=== PATIENT | male | born 1950 | race Caucasian/White ===

== ENCOUNTER 2017-07-20 11:20 | Emergency (ER) | payer MEDICARE, OTHER ==
[~2017-07-20] VITALS: Ht 182.9 cm; Wt 100.0 kg
[2017-07-20 11:26] VITALS: BP 134/82; PULSE 88; RESP 16; O2SAT 97
--- NOTE | 2017-07-20 13:16 | ED.REPORT ---
HPI-Extremity Problem Lower Date of Service Jul 20, 2017 ED Provider: Doc,Ed MD History of Present Illness: sent here by Dr. Benoit. Medications are metformin, eye drops for glaucoma, and antibiotic, took 3 pills, is bid dosing. right lower leg swelling. Started started with a small red spot, getting worse.. Seen at urgent care yesterday and started on antibiotics yesterday. Went to [facility] [facility] and sent here. Nursing Notes Stated Complaint: RIGHT CALF PAIN Chief Complaint: Skin Rash/Abscess Nursing Notes Reviewed: Yes Allergies: Coded Allergies: No Known Allergies (Unverified , 07/20/17) General Time Seen by MD: 13:15 Chief Complaint Leg injury right Hx Obtained From: Patient Onset Occurred: 5 days ago Symptom Duration: Since onset Past Medical History Past Medical History Reports: Diabetes mellitus, Denies: Asthma, Hypertension Past Surgical History hernia, ganglion cyst Smoking History Never Smoker Social History Alcohol Use: "Social" Drug Use: Denies drug use Occupation , lives by self 07/20/2017 Ambulatory Status Independent Review of Systems Basic Review of Systems Eyes: Vision NL, No discharge : No dysuria, No frequency Psychiatric: Normal thought content Physical Exam Initial Vital Signs Vital Signs (First) Date Time Temp Pulse Resp B/P Pulse Ox O2 Delivery O2 Flow Rate FiO2 07/20/17 11:26 36.6 88 16 134/82 97 Room Air Initial VS: Reviewed, Vital signs normal General/Constitutional: Well-developed, Well-nourished Head / Eyes: Atraumatic, Normocephalic, PERRL ENT: Mucous membranes moist, Conjunctiva normal, No scleral icterus Neck: Supple, Non-tender, Full range of motion Respiratory: Breath sounds normal, Clear to auscultation, No respiratory distress Cardiovascular: Regular rate & rhythm, Heart sounds normal, Intact distal pulses Abdomen / GI: Soft, Non-tender, No guarding, No rebound, No distention Back: No CVA tenderness Lymphatic: No lymphadenopathy Upper Extremities: Vascular intact, Neuro intact, No swelling, No tenderness Skin: Warm, Dry, No cyanosis Neurologic: Alert, Oriented, Nonfocal Psychiatric: Mood/affect normal, Behavior normal, Normal thought content right lower leg with draining abscess on lateral aspect. Abscess with multiple openings. Erthyma surrounding abscess. General/Constitutional: Awake, Alert, No acute distress Respiratory / Chest: Atraumatic, Breath sounds NL, Breath sounds = bilat, No respiratory distress Cardiovascular: Heart rate NL, Regular rhythm, Heart sounds NL, No gallop Interpretation & Diagnostics Lab Results Interpretation Result Diagram: 07/20/17 1350 07/20/17 1350 Test 07/20/17 13:50 White Blood Count 7.6th/mm3 (3.8-10.1) Red Blood Count 4.35mil/mm3 (4.40-5.80) Hemoglobin 14.4g/dL (13.8-17.2) Hematocrit 41.1% (41.0-50.0) Mean Corpuscular Volume 94.5fL (81-100) Mean Corpuscular Hemoglobin 33.1pg (27.0-35.0) Mean Corpuscular Hemoglobin Concent 35.0% (32.0-37.0) Red Cell Distribution Width 12.2% (12.3-15.4) Platelet Count 243bil/L (150-400) Neutrophils (%) (Auto) 69.9% (40-74) Lymphocytes (%) (Auto) 17.4% (14-46) Monocytes (%) (Auto) 9.8% (4-12) Eosinophils (%) (Auto) 2.5% (0-5) Basophils (%) (Auto) 0.3% (0-3) Sodium Level 135mEq/L (134-144) Potassium Level 4.4mEq/L (3.5-5.2) Chloride Level 96mEq/L (97-108) Carbon Dioxide Level 25mmol/L (18-29) Blood Urea Nitrogen 15mg/dL (8-27) Creatinine 0.84mg/dL (0.76-1.27) Estimat Glomerular Filtration Rate 97mL/min (>59) Glucose Level 124mg/dL (60-99) Lactic Acid Level 1.1mmol/L (0.4-2.0) Calcium Level 9.6mg/dL (8.5-10.1) Total Bilirubin 0.5mg/dL (0.0-1.2) Aspartate Amino Transf (AST/SGOT) 15U/L (0-50) Alanine Aminotransferase (ALT/SGPT) 14U/L (0-44) Alkaline Phosphatase 66U/L (25-160) Total Protein 8.0g/dL (6.4-8.4) Albumin 4.3g/dL (3.4-5.0) X-Ray Interpretation Xray Interpretation: ROCEDURE: X-RAY RIGHT TIBIA/FIBULA, TWO VIEWS ([id number]) INDICATIONS: abscess TECHNIQUE: 2 views of the tibia and fibula were acquired. COMPARISON: None. FINDINGS: Bones: Source of persistent pain not identified. No underlying foreign body or osseous trauma found. Soft tissues: No suspicious soft tissue calcifications or masses. IMPRESSION: No gas in the soft tissue seen. No abscess identified. Ultrasound assessment could be obtained for more accurate visualization of abscess if clinically desired. Dictated by: Yaakov Angeles M.D. on 07/20/2017 at 14:19 Approved by: Yaakov Angeles M.D. on 07/20/2017 at 14:20 Procedures Incision & Drainage Abscess Time: 16:00 Procedure Performed by: [facility] Consent / Setup / Site Prep: Informed consent provided Skin Preparation Agent: Betadine Local Anesthesia: Lidocaine 1%, 5cc, 27g needle Incised Abscess with Scalpel: #11 Pus Drained: Large Irrigation: Copious Post-Procedure / Complications: Packing placed, Culture obtained, Gram stain ordered, Dressing applied, No complications, Condition improved, Tolerated procedure well, Patient stable Re-Eval/Medical Decision Med Decision/Clinical Course 67 year old male presents for evualation of right lower leg abscess. No sign of compartment syndrome. Labs are unremarkable. X-ray does not show any gas formation. Abscess is opened with a large amount of discharge out. Site is packed and area of erthyma is outlined, timed and dated. Iv antibiotics with rocephin 2 gm is provided. PAtient is continued on oral bactrim and oral keflex is added, patient denies need for pain medications Discharge & Departure Impression: Primary Impression: Abscess Disposition: Home Patient Instructions: Abscess (ED), Abscess Incision and Drainage (DC) Additional Instructions: The x-ray of your leg does not show any gas formation. Blood cultures are pending. Your labs including lactic acid are normal. The abscess was opened with a large amount of discharge out. You received a dose of rocephin in the ER. Continue with bactrim in the am and pm for 7 days. Add keflex 500 mg up to 4 times a day for 10 days. Need to elevate the leg above the level of your heart. Up only to go to the bathroom and to eat. Return here tomorrow for a wound check. The new area of redness has been outlined, timed and dated. If the redness goes outside the line by more than 1 inch return to the ER immediately. If not, REturn tomorrow afternoon for a recheck. I am sorry this is happening. Referrals: William Benoit MD (PCP) EDSupervising Provider for APC: Zack Adan DO copies to: William Benoit MD, Sue ARNP Jul 20, 2017 13:15
[2017-07-20] MEDS ORDERED: 0.9% Sodium Chloride 1,000 ML IV ONE (13:30)
[2017-07-20] MEDS ORDERED: cefTRIAXone Inj 2,000 MG in Dextrose 5% Minibag Plus 50 ML IV ONE (13:30)
[2017-07-20] MEDS ORDERED: Trimethoprim-Sulfa 160 mg-800 mg Tablet PO ONE (13:30)
[2017-07-20] MEDS ORDERED: Lidocaine 1% 50 mL Inj NERVEBLOCK ONE (13:55)
[2017-07-20 13:59] LABS: BASOPHILS % (AUTO) 0.3 % (0-3); EOSINOPHILS % (AUTO) 2.5 % (0-5); MONOCYTES % (AUTO) 9.8 % (4-12); Mean Corpuscular Hemoglobin 33.1 pg (27.0-35.0); Mean Corpuscular Volume 94.5 fL (81-100); NEUTROPHILS % (AUTO) 69.9 % (40-74); Platelet Count 243 bil/L (150-400)
--- NOTE | 2017-07-20 14:23 | DRSVH ---
PROCEDURE: X-RAY RIGHT TIBIA/FIBULA, TWO VIEWS ([id number]) INDICATIONS: abscess TECHNIQUE: 2 views of the tibia and fibula were acquired. COMPARISON: None. FINDINGS: Bones: Source of persistent pain not identified. No underlying foreign body or osseous trauma found. Soft tissues: No suspicious soft tissue calcifications or masses. IMPRESSION: No gas in the soft tissue seen. No abscess identified. Ultrasound assessment could be o btained for more accurate visualization of abscess if clinically desired. Dictated by: Yaakov Angeles M.D. on 07/20/2017 at 14:19 Approved by: Yaakov Angeles M.D. on 07/20/2017 at 14:20
[2017-07-20 15:41] VITALS: BP 134/82; PULSE 74; RESP 16; O2SAT 99
== END 2017-07-20 15:42 | disposition home or self-care (01) ==
LOC: SED 11:20
DX: L02.415 Cutaneous abscess of right lower limb (principal); E11.9 Type 2 diabetes mellitus without complications
CPT/HCPCS: 10061; 36415; 73590; 80053; 83605; 85025; 87040; 87070; 87186; 87205; 96361; 96365; 99285; J0696; J7030

== ENCOUNTER 2017-07-21 14:52 | Emergency (ER) | payer MEDICARE ==
[~2017-07-21] VITALS: Ht 182.9 cm; Wt 100.0 kg
[2017-07-21 15:04] VITALS: BP 120/77; PULSE 108; RESP 20; O2SAT 94
--- NOTE | 2017-07-21 15:52 | ED.REPORT ---
HPI-Extremity Problem Lower Date of Service Jul 21, 2017 ED Provider: Yinka Ann DO The pt is 67 y/o male with hx of DM who presents to the ED for a recheck of an infection on his R leg. The infection began on 07/16/17. An I&D was performed in the ED yesterday and a wound culture was taken. The culture is growing out staph after 24 hours. He was prescribed Keflex and Bactrim and has been taking these since. The erythema was marked yesterday and has receded somewhat since. The pt denies fever or chills. He has a follow up appointment scheduled in six days with his PCP. Nursing Notes Stated Complaint: RE-EVALUATE RT CALF WOUND Chief Complaint: Wound Recheck/Suture Removal Nursing Notes Reviewed: Yes Allergies: Coded Allergies: No Known Allergies (Unverified , 07/21/17) General Time Seen by MD: 15:52 Chief Complaint Leg injury right Hx Obtained From: Patient Arrived By: Walk-in Onset Occurred: 5 days ago Symptom Duration: Since onset Caused by: Accidental Location: : Leg right Recent Healthcare: No recent hospitalization, Recent doctor visit Similar Sx Previous: Yes Past Medical History Past Medical History Reports: Diabetes mellitus Past Surgical History hernia, ganglion cyst Smoking History Never Smoker Social History Alcohol Use: "Social" Drug Use: Denies drug use Occupation , lives by self 07/20/2017 Ambulatory Status Independent Review of Systems Redness of the R calf Constitutional: Denies: Chills, Fever Musculoskeletal: Reports: Extremity pain (R calf) Neurologic: Denies: Headache Complete sys rev & neg: except as marked. Eyes: Denies: Blurred bilateral Ears / Nose / Throat: Denies: Sore throat Cardiovascular: Denies: Chest pain GI: Denies: Abdominal pain, Vomiting Physical Exam Initial Vital Signs Vital Signs (First) Date Time Temp Pulse Resp B/P Pulse Ox O2 Delivery O2 Flow Rate FiO2 07/21/17 15:04 37.1 108 20 120/77 94 Room Air Initial VS: Reviewed General/Constitutional: Well-developed, Well-nourished Head / Eyes: Atraumatic, Normocephalic, PERRL Neck: Supple, Full range of motion Respiratory: Breath sounds normal, Clear to auscultation, No respiratory distress Cardiovascular: Regular rate & rhythm, Heart sounds normal, Intact distal pulses Skin: Warm, Dry, No cyanosis Neurologic: Alert, Oriented, Nonfocal Psychiatric: Mood/affect normal, Behavior normal Lower Extremity / Pelvis / MS: Neurologic intact, Vascular intact packing removed no purulent drainage erythema is receding within the lines previously drawn. remains tender and warm Ankle / Foot: Atraumatic Re-Eval/Medical Decision Source of Hx: Old records Re-Evaluation/Progress : Time of Eval: 15:53 Patient Status: Condition improved Re-Evaluation/Progress Note: Pt rechecked. Removed the packing from the wound. Informed pt of plan for discharge. The pt understands and agrees with plan for discharge. F/U instructions and RTER warnings given. All questions addressed at this time. Counseled Regarding: Diagnosis, Need for follow-up, When/why to return to ED Discharge & Departure Impression: Primary Impression: Abscess Additional Impression: Cellulitis Site of cellulitis: extremity Site of cellulitis of extremity: lower extremity Laterality: right Qualified Code: L03.115 - Cellulitis of right lower limb Disposition: Home Discharge Condition Condition: Stable Patient Instructions: Cellulitis (ED) Additional Instructions: Thank you for trusting us with your care today. Your emergency department evaluation today is reassuring that your antibiotics are working. Packing was removed today and not replaced because it is not needed. Continue to take your Bactrim and Keflex. Use water and soap to clean the wound. Follow-up with your primary care provider next Wednesday as scheduled, return to the ER if you develop fevers, chills, increasing redness or swelling, or drainage of your leg. Referrals: William Benoit MD (PCP) Scribe Attestation Portions of this note were transcribed by Michel Ortega and Diana Blackmon. I, Dr. Holland Ann personally performed the history, physical exam and medical decision-making; I reviewed and confirmed the accuracy of the information in the transcribed note. Signed by: Melisa Harvey, 07/21/17. copies to: William Benoit MD, Gary R DO Jul 21, 2017 15:52 Michel Ortega Jul 21, 2017 16:18 DIANA BLACKMON Jul 21, 2017 16:56
== END 2017-07-21 16:50 | disposition home or self-care (01) ==
LOC: SED 14:52
DX: L02.415 Cutaneous abscess of right lower limb (principal); L03.115 Cellulitis of right lower limb; E11.9 Type 2 diabetes mellitus without complications